=== PATIENT | female | born 1990 | race African-American/Black ===

== ENCOUNTER 2018-04-22 13:54 | Outpatient (CLI) | payer OTHER ==
--- NOTE | 2018-04-22 15:34 | RAD ---
CHEST PA AND LATERAL TWO VIEWS: History: 27-year-old female with history of SSI disability, coronary artery dissection, and MS. FINDINGS: Heart size is normal. The lungs are clear. No pneumonia, edema, or pleural effusion. IMPRESSION: No acute intrathoracic disease. POS: [facility]
== END 2018-04-22 13:55 | disposition home or self-care (01) ==
LOC: NAV RAD 13:54
PROVIDERS: ATTEND Family Medicine
DX: I25.42 Coronary artery dissection (principal); I25.2 Old myocardial infarction
CPT/HCPCS: 71046